=== PATIENT | female | born 1970 | race Caucasian/White ===

== ENCOUNTER 2022-10-01 08:27 | Day surgery (SDC) | payer OTHER ==
[~2022-10-01] VITALS: Ht 137.2 cm; Wt 61.2 kg
[2022-10-01] MEDS ORDERED: diphenhydrAMINE 50 MG/ML VIAL ONE (09:16)
[2022-10-01] MEDS ORDERED: fentaNYL citrate 0.05 MG/ML VIAL ONE ×2 (09:17→09:44)
[2022-10-01] MEDS ORDERED: MIDAZOLAM 2 MG/2 ML VIAL ONE (09:17)
[2022-10-01] MEDS ORDERED: fentaNYL citrate 0.05 MG/ML VIAL IVP ONE (10:50)
[2022-10-01] MEDS ORDERED: MIDAZOLAM 5 MG/5 ML VIAL IV ONE (10:50)
== END 2022-10-01 11:05 | disposition home or self-care (01) ==
LOC: MMU 08:27 → MDS 08:27
PROVIDERS: ATTEND Internal Medicine Gastroenterology
DX: Z12.11 Encounter for screening for malignant neoplasm of colon (principal); K21.9 Gastro-esophageal reflux disease without esophagitis; K29.70 Gastritis, unspecified, without bleeding
CPT/HCPCS: 43239; 45378; J1200; J2250; J3010